=== PATIENT | female | born 1940 | race Caucasian/White ===

== ENCOUNTER 2017-04-19 09:45 | Emergency (ER) | payer MEDICARE ==
[2017-04-19] MEDS ORDERED: Losartan 50 MG Tab PO ONE (10:38)
--- NOTE | 2017-04-19 10:56 | EDM.PDOC ---
ED HPI GENERAL MEDICAL PROBLEM - General Chief Complaint: General Stated Complaint: DIZZY Time Seen by Provider: 04/19/17 10:52 Source of Information: Reports: Patient, Family History Limitations: Reports: No Limitations - History of Present Illness INITIAL COMMENTS - FREE TEXT/NARRATIVE: pt arrived with a history of feelingvery dizzy when she got up this am. She went to stand up to go to the Bathroom and she was of balance. It is difficult to obtain a history regarding vertigo. She did feel slightly nauseated. Onset: Today Duration: Hour(s):, Other (pt i feeling better at this time. She is feeling anxious. ) Location: Reports: Other ( she does not hve a headache. ) Associated Symptoms: Reports: Other ( Pt did hve slight nausea. ) Denies Pain Score (Numeric/FACES): 0 - Related Data Allergies Allergy/AdvReac Type Severity Reaction Status Date / Time No Known Allergies Allergy Verified 04/19/17 10:11 Home Meds: Home Meds Alendronate [Fosamax] 70 mg PO WEEKLY 04/19/17 [History] Atenolol 25 mg PO BEDTIME 04/19/17 [History] ClonazePAM [KlonoPIN] 0.5 mg PO TID PRN 04/19/17 [History] Levothyroxine [Synthroid] 88 mcg PO ACBREAKFAST 04/19/17 [History] Losartan [Cozaar] 50 mg PO DAILY 04/19/17 [History] Past Medical History HEENT History: Reports: Hard of Hearing, Impaired Vision, Other (See Below) Other HEENT History: [place] Cardiovascular History: Reports: High Cholesterol, Hypertension Neurological History: Reports: Vertigo Psychiatric History: Reports: Anxiety Endocrine/Metabolic History: Reports: Hypothyroidism - Infectious Disease History Infectious Disease History: Reports: Chicken Pox, Measles, Mumps - Past Surgical History Female Surgical History: Reports: Hysterectomy Musculoskeletal Surgical History: Reports: Knee Replacement, Other (See Below) Other Musculoskeletal Surgeries/Procedures:: Spinal tumor removed Oncologic Surgical History: Reports: Other (See Below) Other Oncologic Surgeries/Procedures: removal of parotid gland Social & Family History - Tobacco Use Smoking Status *Q: Never Smoker Second Hand Smoke Exposure: No - Caffeine Use Caffeine Use: Reports: Coffee, Tea - Alcohol Use Days Per Week of Alcohol Use: 0 - Recreational Drug Use Recreational Drug Use: No ED ROS GENERAL - Review of Systems Review Of Systems: See Below Constitutional: Reports: No Symptoms HEENT: Reports: Other (pt has loss of h) Respiratory: Reports: No Symptoms Cardiovascular: Reports: Other (pt had dizziness. ) Endocrine: Reports: No Symptoms GI/Abdominal: Reports: Nausea : Reports: No Symptoms Musculoskeletal: Reports: No Symptoms Skin: Reports: No Symptoms ED EXAM, GENERAL - Physical Exam Exam: See Below Free Text/Narrative:: pt was concerned about some minor dizziness or vertigo when she first got up. She is feeling better now, Exam Limited By: No Limitations General Appearance: Alert, No Apparent Distress, Anxious Ears: Normal TMs Nose: Normal Inspection Throat/Mouth: Normal Inspection Neck: Normal Inspection Respiratory/Chest: No Respiratory Distress Cardiovascular: Regular Rate, Rhythm, No Murmur GI/Abdominal: Soft, Non-Tender (Female) Exam: Deferred Rectal (Female) Exam: Deferred Back Exam: Normal Inspection Extremities: Normal Inspection Neurological: Alert, Oriented, Normal Cognition Psychiatric: Anxious Course - Vital Signs Last Recorded V/S: Last Vital Signs Temp 36.1 C 04/19/17 10:31 Pulse 63 04/19/17 10:31 Resp 16 04/19/17 10:31 BP 191/108 H 04/19/17 11:03 Pulse Ox 100 04/19/17 10:31 Orthostatic Blood Pressure [ 181/97 Standing] Orthostatic Blood Pressure [ 176/91 Sitting] Orthostatic Blood Pressure [ 163/82 Supine] - Orders/Labs/Meds Orders: Active Orders 24 hr Category Date Time Status Orthostatic Vital Signs [RC] ASDIRECTED Care 04/19/17 10:51 Active Labs: Laboratory Tests 04/19/17 04/19/17 04/19/17 Range/Units 10:42 10:55 10:55 WBC 6.1 (4.5-11.0) K/uL RBC 3.94 (3.30-5.50) M/uL Hgb 12.7 (12.0-15.0) g/dL Hct 37.9 (36.0-48.0) % MCV 96 (80-98) fL MCH 32 H (27-31) pg MCHC 34 (32-36) % Plt Count 228 (150-400) K/uL Neut % (Auto) 77 H (36-66) % Lymph % (Auto) 14 L (24-44) % [place] % (Auto) 7 H (2-6) % Eos % (Auto) 1 L (2-4) % Baso % (Auto) 1 (0-1) % Sodium 138 L (140-148) mmol/L Potassium 3.7 (3.6-5.2) mmol/L Chloride 101 (100-108) mmol/L Carbon Dioxide 29 (21-32) mmol/L Anion Gap 11.7 (5.0-14.0) mmol/L BUN 19 H (7-18) mg/dL Creatinine 0.9 (0.6-1.0) mg/dL Est Cr Clr Drug Dosing 39.85 mL/min Estimated GFR (MDRD) > 60 (>60) Glucose 108 H (74-106) mg/dL Calcium 9.0 (8.5-10.1) mg/dL Total Bilirubin 0.2 (0.2-1.0) mg/dL AST 33 (15-37) U/L ALT 38 (12-78) U/L Alkaline Phosphatase 53 (46-116) U/L Total Protein 7.5 (6.4-8.2) g/dL Albumin 3.7 (3.4-5.0) g/dL Globulin 3.8 H (2.3-3.5) g/dL Albumin/Globulin Ratio 1.0 L (1.2-2.2) TSH, Ultra Sensitive (0.358-3.740) uIU/mL Urine Color Yellow Urine Appearance Clear Urine pH 8.0 (4.5-8.0) Ur Specific [place] 1.015 (1.008-1.030) Urine Protein Negative (NEGATIVE) mg/dL Urine Glucose (UA) Normal (NEGATIVE) mg/dL Urine Ketones Negative (NEGATIVE) mg/dL Urine Occult Blood Negative (NEGATIVE) Urine Nitrite Negative (NEGATIVE) Urine Bilirubin Negative (NEGATIVE) Urine Urobilinogen Normal (NORMAL) mg/dL Ur Leukocyte Esterase Negative (NEGATIVE) Urine RBC 0-5 (0-5) Urine WBC 0-5 (0-5) Ur Epithelial Cells Few Amorphous Sediment Not seen Urine Bacteria Few Urine Mucus Not seen 04/19/17 Range/Units 10:55 WBC (4.5-11.0) K/uL RBC (3.30-5.50) M/uL Hgb (12.0-15.0) g/dL Hct (36.0-48.0) % MCV (80-98) fL MCH (27-31) pg MCHC (32-36) % Plt Count (150-400) K/uL Neut % (Auto) (36-66) % Lymph % (Auto) (24-44) % [place] % (Auto) (2-6) % Eos % (Auto) (2-4) % Baso % (Auto) (0-1) % Sodium (140-148) mmol/L Potassium (3.6-5.2) mmol/L Chloride (100-108) mmol/L Carbon Dioxide (21-32) mmol/L Anion Gap (5.0-14.0) mmol/L BUN (7-18) mg/dL Creatinine (0.6-1.0) mg/dL Est Cr Clr Drug Dosing mL/min Estimated GFR (MDRD) (>60) Glucose (74-106) mg/dL Calcium (8.5-10.1) mg/dL Total Bilirubin (0.2-1.0) mg/dL AST (15-37) U/L ALT (12-78) U/L Alkaline Phosphatase (46-116) U/L Total Protein (6.4-8.2) g/dL Albumin (3.4-5.0) g/dL Globulin (2.3-3.5) g/dL Albumin/Globulin Ratio (1.2-2.2) TSH, Ultra Sensitive 0.364 (0.358-3.740) uIU/mL Urine Color Urine Appearance Urine pH (4.5-8.0) Ur Specific [place] (1.008-1.030) Urine Protein (NEGATIVE) mg/dL Urine Glucose (UA) (NEGATIVE) mg/dL Urine Ketones (NEGATIVE) mg/dL Urine Occult Blood (NEGATIVE) Urine Nitrite (NEGATIVE) Urine Bilirubin (NEGATIVE) Urine Urobilinogen (NORMAL) mg/dL Ur Leukocyte Esterase (NEGATIVE) Urine RBC (0-5) Urine WBC (0-5) Ur Epithelial Cells Amorphous Sediment Urine Bacteria Urine Mucus Meds: Medications Discontinued Medications Generic Name Dose Route Start Last Admin Trade Name Freq PRN Reason Stop Dose Admin Lorazepam 0.5 mg 04/19/17 11:48 04/19/17 11:52 Ativan PO 04/19/17 11:49 0.5 mg ONETIME ONE Administration Losartan Potassium 50 mg 04/19/17 10:38 04/19/17 11:03 Cozaar PO 04/19/17 10:39 50 mg ONETIME ONE Administration Meclizine HCl 25 mg 04/19/17 11:13 04/19/17 11:27 Antivert PO 04/19/17 11:14 25 mg ONETIME ONE Administration - Re-Assessments/Exams Free Text/Narrative Re-Assessment/Exam: 04/19/17 12:14 pt was given her losartan and ativan and her bp is coming down. She is feeling ok at this point. Departure - Departure Time of Disposition: 12:15 Disposition: Home, Self-Care 01 Condition: Fair Clinical Impression: Hypertension, Vertigo, Anxiety - Discharge Information Forms: ED Department Discharge Care Plan Goals: cont same meds, in a couple of days start monitoring the blood pressure as she has done in the past, antivert 12.5 mg q6h as needed for recurrent dizziness. - My Orders Last 24 Hours: My Active Orders 04/19/17 10:51 Orthostatic Vital Signs [RC] ASDIRECTED - Assessment/Plan Last 24 Hours: My Active Orders 04/19/17 10:51 Orthostatic Vital Signs [RC] ASDIRECTED
[2017-04-19] MEDS ORDERED: Meclizine 25 MG Tab PO ONE (11:13)
[2017-04-19] MEDS ORDERED: LORazepam 0.5 MG Tab PO ONE (11:48)
[2017-04-19 12:16] VITALS: BP 176/84
== END 2017-04-19 12:31 | disposition home or self-care (01) ==
LOC: JP.ED 09:45
DX: I10 Essential (primary) hypertension (principal); F41.9 Anxiety disorder, unspecified; E78.00 Pure hypercholesterolemia, unspecified; E03.9 Hypothyroidism, unspecified; Z79.899 Other long term (current) drug therapy; Z90.710 Acquired absence of both cervix and uterus; Z96.659 Presence of unspecified artificial knee joint
CPT/HCPCS: 36415; 80053; 81001; 84443; 85025; 99284; A9270; 99283

== ENCOUNTER 2019-05-10 17:11 | Emergency (ER) | payer MEDICARE ==
--- NOTE | 2019-05-10 18:14 | EDM.PDOC ---
ED HPI GENERAL MEDICAL PROBLEM - General Chief Complaint: General Stated Complaint: DIZZY BLOOD PRESSURE Time Seen by Provider: 05/10/19 18:33 Source of Information: Reports: Patient History Limitations: Reports: No Limitations - History of Present Illness INITIAL COMMENTS - FREE TEXT/NARRATIVE: 78 years old female patient presented with chief complaint of dizziness. Patient stated that it felt like a mix of feeling lightheaded, spinning, unstable in her feet. She checked her blood pressure and it was elevated 190 systolic. History of chronic dizziness but worse since time improved when she rested. She is not sure how long it lasted but it was intermittent. Worse when she moves her head or try to walk. Denies any chest pain or shortness breath. Denies any headache or visual changes. Denies any focal weakness or numbness anywhere. Denies any abdominal pain diarrhea or constipation. Denies any urinary symptom. Symptom currently completely resolved and she is back to normal. Blood pressure occasionally elevated and close her to felt dizzy. - Related Data Allergies Allergy/AdvReac Type Severity Reaction Status Date / Time No Known Allergies Allergy Verified 04/19/17 10:11 Home Meds: Home Meds Alendronate [Fosamax] 70 mg PO WEEKLY 04/19/17 [History] Atenolol 25 mg PO BID 04/19/17 [History] ClonazePAM [KlonoPIN] 0.5 mg PO TID PRN 04/19/17 [History] Levothyroxine [Synthroid] 88 mcg PO ACBREAKFAST 04/19/17 [History] Losartan [Cozaar] 50 mg PO DAILY 04/19/17 [History] Past Medical History HEENT History: Reports: Hard of Hearing, Impaired Vision, Other (See Below) Other HEENT History: [place] Cardiovascular History: Reports: High Cholesterol, Hypertension Neurological History: Reports: Vertigo Psychiatric History: Reports: Anxiety Endocrine/Metabolic History: Reports: Hypothyroidism - Infectious Disease History Infectious Disease History: Reports: Chicken Pox, Measles, Mumps - Past Surgical History Female Surgical History: Reports: Hysterectomy Musculoskeletal Surgical History: Reports: Knee Replacement, Other (See Below) Other Musculoskeletal Surgeries/Procedures:: Spinal tumor removed Oncologic Surgical History: Reports: Other (See Below) Other Oncologic Surgeries/Procedures: removal of parotid gland Social & Family History - Tobacco Use Smoking Status *Q: Never Smoker - Caffeine Use Caffeine Use: Reports: Coffee ED ROS GENERAL - Review of Systems Review Of Systems: ROS reveals no pertinent complaints other than HPI. ED EXAM, GENERAL - Physical Exam Exam: See Below Exam Limited By: No Limitations General Appearance: Alert, WD/WN, No Apparent Distress Ears: Normal External Exam, Normal Canal, Hearing Grossly Normal, Normal TMs Ear Exam: Bilateral Ear: Auricle Normal, Canal Normal, TM normal Nose: Normal Inspection, Normal Mucosa, No Blood Throat/Mouth: Normal Inspection, Normal Lips, Normal Teeth, Normal Gums, Normal Oropharynx, Normal Voice, No Airway Compromise Head: Atraumatic, Normocephalic Neck: Normal Inspection, Supple, Non-Tender, Full Range of Motion Respiratory/Chest: No Respiratory Distress, Lungs Clear, Normal Breath Sounds, No Accessory Muscle Use, Chest Non-Tender Cardiovascular: Normal Peripheral Pulses, Regular Rate, Rhythm, No Edema, No Gallop, No JVD, No Murmur, No Rub GI/Abdominal: Normal Bowel Sounds, Soft, Non-Tender, No Organomegaly, No Distention, No Abnormal Bruit, No Mass Back Exam: Normal Inspection, Full Range of Motion, NT Neurological: Alert, Oriented, CN II-XII Intact, Normal Cognition, Normal Gait, Normal Reflexes, No Motor/Sensory Deficits Psychiatric: Normal Affect, Normal Mood Skin Exam: Warm, Dry, Intact, Normal Color, No Rash Course - Vital Signs Last Recorded V/S: Last Vital Signs Temp 36.3 C 05/10/19 18:37 Pulse 62 05/10/19 19:17 Resp 15 05/10/19 19:17 BP 167/82 H 05/10/19 19:17 Pulse Ox 98 05/10/19 19:17 - Orders/Labs/Meds Orders: Active Orders 24 hr Category Date Time Status Cardiac Monitoring [RC] .As Directed Care 05/10/19 18:10 Active EKG Documentation Completion [RC] ASDIRECTED Care 05/10/19 18:12 Active EKG 12 Lead [EK] Stat Ther 05/10/19 18:12 Ordered Labs: Laboratory Tests 05/10/19 05/10/19 05/10/19 Range/Units 18:25 18:25 18:25 WBC 6.1 (4.5-11.0) K/uL RBC 4.10 (3.30-5.50) M/uL Hgb 12.6 (12.0-15.0) g/dL Hct 38.8 (36.0-48.0) % MCV 95 (80-98) fL MCH 31 (27-31) pg MCHC 33 (32-36) % Plt Count 235 (150-400) K/uL Neut % (Auto) 69 H (36-66) % Lymph % (Auto) 20 L (24-44) % [place] % (Auto) 9 H (2-6) % Eos % (Auto) 1 L (2-4) % Baso % (Auto) 0 (0-1) % PT 10.7 (9.5-12.0) sec INR 0.99 (0.80-1.20) Sodium 139 L (140-148) mmol/L Potassium 3.6 (3.6-5.2) mmol/L Chloride 100 (100-108) mmol/L Carbon Dioxide 31 (21-32) mmol/L Anion Gap 11.6 (5.0-14.0) mmol/L BUN 14 (7-18) mg/dL Creatinine 0.8 (0.6-1.0) mg/dL Est Cr Clr Drug Dosing 43.03 mL/min Estimated GFR (MDRD) > 60 (>60) Glucose 96 (74-106) mg/dL Calcium 9.8 (8.5-10.1) mg/dL Troponin I < 0.017 (0.000-0.056) ng/mL NT-Pro-B Natriuret Pep 355 (5-450) pg/mL Urine Color (YELLOW) Urine Appearance (CLEAR) Urine pH (5.0-8.0) Ur Specific [place] (1.008-1.030) Urine Protein (NEGATIVE) mg/dL Urine Glucose (UA) (NEGATIVE) mg/dL Urine Ketones (NEGATIVE) mg/dL Urine Occult Blood (NEGATIVE) Urine Nitrite (NEGATIVE) Urine Bilirubin (NEGATIVE) Urine Urobilinogen (0.2-1.0) EU/dL Ur Leukocyte Esterase (NEGATIVE) Urine RBC (0-5) Urine WBC (0-5) Ur Epithelial Cells Amorphous Sediment Urine Bacteria Urine Mucus 05/10/19 Range/Units 18:36 WBC (4.5-11.0) K/uL RBC (3.30-5.50) M/uL Hgb (12.0-15.0) g/dL Hct (36.0-48.0) % MCV (80-98) fL MCH (27-31) pg MCHC (32-36) % Plt Count (150-400) K/uL Neut % (Auto) (36-66) % Lymph % (Auto) (24-44) % [place] % (Auto) (2-6) % Eos % (Auto) (2-4) % Baso % (Auto) (0-1) % PT (9.5-12.0) sec INR (0.80-1.20) Sodium (140-148) mmol/L Potassium (3.6-5.2) mmol/L Chloride (100-108) mmol/L Carbon Dioxide (21-32) mmol/L Anion Gap (5.0-14.0) mmol/L BUN (7-18) mg/dL Creatinine (0.6-1.0) mg/dL Est Cr Clr Drug Dosing mL/min Estimated GFR (MDRD) (>60) Glucose (74-106) mg/dL Calcium (8.5-10.1) mg/dL Troponin I (0.000-0.056) ng/mL NT-Pro-B Natriuret Pep (5-450) pg/mL Urine Color Yellow (YELLOW) Urine Appearance Clear (CLEAR) Urine pH 8.5 H (5.0-8.0) Ur Specific [place] 1.020 (1.008-1.030) Urine Protein Negative (NEGATIVE) mg/dL Urine Glucose (UA) Normal (NEGATIVE) mg/dL Urine Ketones Negative (NEGATIVE) mg/dL Urine Occult Blood Negative (NEGATIVE) Urine Nitrite Negative (NEGATIVE) Urine Bilirubin Negative (NEGATIVE) Urine Urobilinogen Normal (0.2-1.0) EU/dL Ur Leukocyte Esterase Negative (NEGATIVE) Urine RBC 0-5 (0-5) Urine WBC 0-5 (0-5) Ur Epithelial Cells Few Amorphous Sediment Rare Urine Bacteria Not seen Urine Mucus Not seen - Radiology Interpretation Free Text/Narrative:: Patient was seen and examined shortly after arrival. Stable on embedded software programmer. Initial blood pressure was elevated was 190 systolic, spontaneously improved down to 150/80. Dizziness completely resolved. She is feeling back to normal. EKG shows no sign of acute ischemia or arrhythmia. Lab and imaging reviewed with the patient. No significant acute abnormalities. Blood pressure spontaneously improved. She was up walking around, feeling stable in her feet, completely asymptomatic and back to normal. Cells this is could be related to it if his blood pressure hypertensive urgency. Advised to monitor her blood pressure closely and review with her primary doctor. Unlikely TIA, also possibly benign positional vertigo. Currently resolved. No sign of stroke. No sign of VT, seizure, arrhythmia. Advised to rest and stay hydrated, follow-up with PCP in a few days. Come back if symptom worsen. Patient agrees with the plan. Stable for discharge. Departure - Departure Time of Disposition: 19:31 Disposition: Home, Self-Care 01 Condition: Good Clinical Impression: Hypertensive urgency, Dizziness - Discharge Information *PRESCRIPTION DRUG MONITORING PROGRAM REVIEWED*: Not Applicable *COPY OF PRESCRIPTION DRUG MONITORING REPORT IN PATIENT SALMA: Not Applicable Referrals: PCP,None [Primary Care Provider] - Forms: ED Department Discharge Additional Instructions: Rest and stay well-hydrated Keep blood pressure diary, review your primary doctor Come back if symptom worsen Follow-up with primary doctor in 3 or 4 days - My Orders Last 24 Hours: My Active Orders 05/10/19 18:10 Cardiac Monitoring [RC] .As Directed 05/10/19 18:12 EKG Documentation Completion [RC] ASDIRECTED EKG 12 Lead [EK] Stat - Assessment/Plan Last 24 Hours: My Active Orders 05/10/19 18:10 Cardiac Monitoring [RC] .As Directed 05/10/19 18:12 EKG Documentation Completion [RC] ASDIRECTED EKG 12 Lead [EK] Stat Plan: Rest and stay well-hydrated Keep blood pressure diary, review your primary doctor Come back if symptom worsen Follow-up with primary doctor in 3 or 4 days
[2019-05-10 19:17] VITALS: BP 167/82; PULSE 62
--- NOTE | 2019-05-10 19:20 | CRLCT ---
Indication: Dizziness Technique: Nonenhanced axial CT imaging through the head. Comparison: None Findings: There is no intracranial hemorrhage, edema, or mass effect. There is mild cerebral volume loss. Mild hypoattenuation of the periventricular white matter likely relates to chronic microvascular ischemic change. The ventricles are normal in size. The basal cisterns are patent. Intracranial atherosclerotic disease is noted. The calvarium is intact. The visualized paranasal sinuses and mastoid air cells are well aerated. Impression: No acute intracranial process. Please note that all CT scans at this facility use dose modulation, iterative reconstruction, and/or weight-based dosing when appropriate to reduce radiation dose to as low as reasonably achievable. Dictated by Bee Fragoso MD @ May 10 2019 7:20PM Signed by Dr. Bee Fragoso @ May 10 2019 7:20PM
== END 2019-05-10 19:45 | disposition home or self-care (01) ==
LOC: JP.ED 17:11
DX: I16.0 Hypertensive urgency (principal); E03.9 Hypothyroidism, unspecified; F41.9 Anxiety disorder, unspecified; Z79.899 Other long term (current) drug therapy
CPT/HCPCS: 36415; 70450; 80048; 81001; 83880; 84484; 85025; 85610; 93005; 93010; 99284; 99284-25

== ENCOUNTER 2021-04-01 15:10 | Emergency (ER) | payer MEDICARE, OTHER ==
[2021-04-01 15:51] VITALS: BP 162/84; PULSE 61
[2021-04-01] MEDS ORDERED: Acetaminophen/HYDROcodone 325-5 MG Tab PO ONE (16:18)
--- NOTE | 2021-04-01 16:25 | EDM.PDOC ---
ED HPI GENERAL MEDICAL PROBLEM - General Chief Complaint: Back Pain or Injury Stated Complaint: FALL/BACK PAIN Time Seen by Provider: 04/01/21 16:05 Source of Information: Reports: Patient, Old Records, RN History Limitations: Reports: No Limitations - History of Present Illness INITIAL COMMENTS - FREE TEXT/NARRATIVE: 80 yo female here with R flank pain after falling into a dresser on her way to the bathroom in the middle of the night. Has no pain at rest, but has increased pain with especially getting up off her toilet. Is taking acetaminophen with partial relief. Onset: Sudden Onset Date: 03/31/21 Duration: Day(s): (1.5), Intermittent Location: Reports: Back Quality: Reports: Sharp, Stabbing Severity: Severe Improves with: Reports: Rest Worsens with: Reports: Movement Context: Reports: Trauma Associated Symptoms: Reports: No Other Symptoms Treatments [facility] UNDERWRITER: Reports: Acetaminophen - Related Data Allergies Allergy/AdvReac Type Severity Reaction Status Date / Time No Known Allergies Allergy Verified 04/01/21 15:48 Home Meds: Home Meds ClonazePAM [KlonoPIN] 0.5 mg PO TID PRN 04/19/17 [History] Levothyroxine [Synthroid] 50 mcg PO ACBREAKFAST 04/19/17 [History] Losartan [Cozaar] 100 mg PO DAILY 04/19/17 [History] atenoloL [Atenolol] 25 mg PO BID 04/19/17 [History] Acetaminophen/HYDROcodone [[place] 325-5 MG] 1 tab PO Q4H PRN #20 tab 04/01/21 [Rx] amLODIPine [Norvasc] 2.5 mg PO BEDTIME 04/01/21 [History] Past Medical History HEENT History: Reports: Hard of Hearing, Impaired Vision, Other (See Below) Other HEENT History: [place] Cardiovascular History: Reports: High Cholesterol, Hypertension Genitourinary History: Reports: None Neurological History: Reports: Vertigo Psychiatric History: Reports: Anxiety Endocrine/Metabolic History: Reports: Hypothyroidism - Infectious Disease History Infectious Disease History: Reports: Chicken Pox, Measles, Mumps - Past Surgical History Female Surgical History: Reports: Hysterectomy Musculoskeletal Surgical History: Reports: Knee Replacement, Other (See Below) Other Musculoskeletal Surgeries/Procedures:: Spinal tumor removed Oncologic Surgical History: Reports: Other (See Below) Other Oncologic Surgeries/Procedures: removal of parotid gland Dermatological Surgical History: Reports: None Social & Family History - Caffeine Use Caffeine Use: Reports: Coffee ED ROS GENERAL - Review of Systems Review Of Systems: See Below Constitutional: Reports: No Symptoms HEENT: Reports: No Symptoms Respiratory: Reports: No Symptoms Cardiovascular: Reports: No Symptoms GI/Abdominal: Reports: No Symptoms Musculoskeletal: Reports: Back Pain Skin: Reports: No Symptoms Neurological: Reports: No Symptoms ED EXAM, UPPER BACK/NECK PAIN - Physical Exam Exam: See Below Exam Limited By: No Limitations General Appearance: Alert, WD/WN, No Apparent Distress, Thin Eye Exam: Bilateral Eye: Normal Inspection Ears Exam: Normal External Exam, Normal Canal, Hearing Loss Nose Exam: Normal Inspection, No Blood Throat/Mouth Exam: Normal Inspection, Normal Lips, Normal Voice, No Airway Compromise Head Exam: Atraumatic, Normocephalic Cardiovascular/Respiratory: Regular Rate, Rhythm, Normal Breath Sounds, No Respiratory Distress. No: Rales, Rhonchi Back Exam: Normal Inspection, Other (Rib tenderness over the R post/lateral 12th rib). No: CVA Tenderness (R), CVA Tenderness (L) Extremities: Normal Inspection Neurologic: library clerk talking books II-XII nml As Tested, No Motor/Sensory Deficits, Normal Mood/Affect, Oriented x 3 Psychiatric: Normal Affect, Normal Mood Skin Exam: Normal Color, Warm/Dry Course - Vital Signs Last Recorded V/S: Last Vital Signs Temp 36.6 C 04/01/21 15:53 Pulse 61 04/01/21 15:53 Resp 17 04/01/21 15:53 BP 162/84 H 04/01/21 15:53 Pulse Ox 99 04/01/21 15:53 - Orders/Labs/Meds Orders: Active Orders 24 hr Category Date Time Status Ribs 3V wo Chest Rt [CR] Stat Exams 04/01/21 16:18 Taken Meds: Medications Discontinued Medications Generic Name Dose Route Start Last Admin Trade Name Freq PRN Reason Stop Dose Admin Hydrocodone Bitart/Acetaminophen 1 tab 04/01/21 16:18 04/01/21 16:24 Acetaminophen/Hydrocodone 325-5 Mg Tab PO 04/01/21 16:19 1 tab ONETIME ONE Administration - Radiology Interpretation Free Text/Narrative:: Rib X-rays-neg Departure - Departure Time of Disposition: 16:55 Disposition: Home, Self-Care 01 Condition: Fair Clinical Impression: Rib pain on right side - Discharge Information *PRESCRIPTION DRUG MONITORING PROGRAM REVIEWED*: No *COPY OF PRESCRIPTION DRUG MONITORING REPORT IN PATIENT [place]: No Prescriptions: Acetaminophen/HYDROcodone [[place] 325-5 MG] 1 tab PO Q4H PRN #20 tab PRN Reason: Pain Referrals: PCP,None [Primary Care Provider] - Forms: ED Department Discharge Additional Instructions: Use acetaminophen 650 mg every 4 hrs as needed for pain relief during the day. At night take [place] 1 every 4 hrs as needed for increased pain relief. See your doctor for recheck before this next weekend. Consider getting a lift for your toilet seat and/or grab bars in your bathroom to help you get off the toilet Sepsis Event Note (ED) - Evaluation Sepsis Screening Result: No Definite Risk - Focused Exam Vital Signs: Vital Signs Temp Pulse Resp BP Pulse Ox 04/01/21 15:53 36.6 C 61 17 162/84 H 99 04/01/21 15:49 36.6 C 61 17 162/84 H 99 - My Orders Last 24 Hours: My Active Orders 04/01/21 16:18 Ribs 3V wo Chest Rt [CR] Stat - Assessment/Plan Last 24 Hours: My Active Orders 04/01/21 16:18 Ribs 3V wo Chest Rt [CR] Stat
--- NOTE | 2021-04-02 08:47 | CR ---
Ribs 3V wo Chest Rt CLINICAL HISTORY: Fall FINDINGS: There is no acute fracture within the ribs. No destructive changes are seen. There is no focal pleural thickening or obvious effusion. Patient has an S shaped scoliosis with lower thoracic convexity to the left IMPRESSION: Negative right ribs. Scoliosis
== END 2021-04-01 17:03 | disposition home or self-care (01) ==
LOC: JP.ED 15:10
DX: R07.81 Pleurodynia (principal); I10 Essential (primary) hypertension; E03.9 Hypothyroidism, unspecified; Z79.899 Other long term (current) drug therapy
CPT/HCPCS: 71101; 99283; A9270

== ENCOUNTER 2023-03-29 10:46 | Emergency (ER) | payer MEDICARE ==
[2023-03-29 12:14] LABS: BASOPHILS PERCENT AUTO 0.4 % (0.1-1.3); EOSINOPHILS ABSOLUTE AUTO 0.04 K/uL (0.00-0.40); EOSINOPHILS PERCENT AUTO 0.9 % (0.0-5.4); HEMATOCRIT 33.9 % (34.3-46.0); HEMOGLOBIN 11.1 g/dL (11.2-15.5); IMMATURE GRAN PERCENT AUTO 0.2 % (0.0-0.7); LYMPHOCYTES ABSOLUTE AUTO 0.95 K/uL (0.8-3.3); LYMPHOCYTES PERCENT AUTO 21.2 % (11.4-47.7); MEAN CORPUSCULAR HEMOGLOBIN 31.2 pg (31.6-35.5); MEAN CORPUSCULAR HGB CONC 32.7 g/dL (31.6-35.5); MEAN CORPUSCULAR VOLUME 95.2 fL (81.4-99.0); MONOCYTES ABSOLUTE AUTO 0.38 K/uL (0.20-0.90); MONOCYTES PERCENT AUTO 8.5 % (3.3-12.6); NEUTROPHILS ABSOLUTE AUTO 3.08 K/uL (1.0-7.6); NEUTROPHILS PERCENT AUTO 68.8 % (40.0-78.1); PLATELET COUNT,PLT 235 K/uL (130-375); RED BLOOD CELL COUNT 3.56 M/uL (3.77-5.24); WHITE BLOOD CELL COUNT,WBC 4.5 K/uL (3.2-11.0)
[2023-03-29 12:15] LABS: BASOPHILS ABSOLUTE AUTO 0.02 K/uL (0.00-0.10); IMMATURE GRAN ABSOLUTE AUTO 0.01 K/uL (0.00-0.23)
[2023-03-29 12:22] VITALS: BP 157/86; PULSE 69
[2023-03-29 12:33] LABS: CALCIUM 9.5 mg/dL (8.5-10.1); CREATININE 0.9 mg/dL (0.6-1.0); EST CRCL DRUG DOSING (CG) 31.37 mL/min; POTASSIUM,K 3.6 mmol/L (3.6-5.2)
[2023-03-29 12:34] LABS: ANION GAP 11.6 mmol/L (5.0-14.0)
[2023-03-29 12:50] LABS: APPEARANCE,URINE CLEAR (CLEAR); BILIRUBIN,URINE NEGATIVE (NEGATIVE); COLOR,URINE YELLOW (YELLOW); GLUCOSE,URINE NEGATIVE (NEGATIVE); KETONES,URINE NEGATIVE (NEGATIVE); LEUKOCYTE ESTERASE,URINE TRACE (NEGATIVE); NITRITE,URINE NEGATIVE (NEGATIVE); OCCULT BLOOD,URINE NEGATIVE (NEGATIVE); PH,URINE 8.5 (5.0-8.0); PROTEIN,URINE NEGATIVE (NEGATIVE); UROBILINOGEN,URINE 0.2 EU/dL (0.2-1.0)
[2023-03-29 12:56] LABS: AMORPHOUS SEDIMENT,URINE NOT SEEN; BACTERIA,URINE NOT SEEN; EPITHELIAL CELLS,URINE FEW; MUCUS,URINE NOT SEEN; RBC,URINE NOT SEEN (0-5); WBC,URINE 0-5 (0-5)
== END 2023-03-29 13:41 | disposition home or self-care (01) ==
LOC: JP.ED 10:46
DX: F41.9 Anxiety disorder, unspecified (principal); R11.0 Nausea; H61.22 Impacted cerumen, left ear; I10 Essential (primary) hypertension; Z79.899 Other long term (current) drug therapy
CPT/HCPCS: 36415; 80048; 81001; 85025; 99284

== ENCOUNTER 2025-04-14 22:16 | Inpatient (IN) | payer MEDICARE ==
[2025-04-14] MEDS: Ondansetron 4 MG/2 ML SDV IVPUSH ONE (23:54)
[2025-04-14] MEDS: Sodium Chloride 0.9% 10 ML Syringe FLUSH PRN (23:54)
[2025-04-15 05:34] LABS: BASOPHILS PERCENT AUTO 0.1 % (0.1-1.3); EOSINOPHILS ABSOLUTE AUTO 0.04 K/uL (0.00-0.40); EOSINOPHILS PERCENT AUTO 0.5 % (0.0-5.4); IMMATURE GRAN ABSOLUTE AUTO 0.03 K/uL (0.00-0.23); IMMATURE GRAN PERCENT AUTO 0.3 % (0.0-0.7); LYMPHOCYTES ABSOLUTE AUTO 0.57 K/uL (0.8-3.3); LYMPHOCYTES PERCENT AUTO 6.5 % (11.4-47.7); MONOCYTES ABSOLUTE AUTO 0.72 K/uL (0.20-0.90); MONOCYTES PERCENT AUTO 8.2 % (3.3-12.6); NEUTROPHILS ABSOLUTE AUTO 7.45 K/uL (1.0-7.6); NEUTROPHILS PERCENT AUTO 84.4 % (40.0-78.1); PLATELET COUNT,PLT 181 K/uL (130-375); RED BLOOD CELL COUNT 3.82 M/uL (3.77-5.24); WHITE BLOOD CELL COUNT,WBC 8.8 K/uL (3.2-11.0)
[2025-04-15 05:48] LABS: BASOPHILS ABSOLUTE AUTO 0.01 K/uL (0.00-0.10)
[2025-04-15 05:50] LABS: INR 1.0
[2025-04-15 05:52] LABS: A/G RATIO 1.1 (1.2-2.2); ALANINE AMINOTRANSFERASE,ALT 93 U/L (12-78); ASPARTATE AMNIOTRANSFERASE,AST 52 U/L (15-37); BILIRUBIN TOTAL 0.6 mg/dL (0.2-1.0); BLOOD UREA NITROGEN,BUN 28 mg/dL (7-18); CARBON DIOXIDE,CO2 29 mmol/L (21-32); CHLORIDE,CL 103 mmol/L (100-108); CREATININE 0.8 mg/dL (0.6-1.0); EST CRCL DRUG DOSING (CG) 39.92 mL/min; ESTIMATED GFR 72 mL/min (>60); GLUCOSE RANDOM 123 mg/dL (74-106); POTASSIUM,K 3.7 mmol/L (3.6-5.2); PROTEIN TOTAL,TP 6.7 g/dL (6.4-8.2); SODIUM,NA 137 mmol/L (140-148)
[2025-04-15 06:14] LABS: APPEARANCE,URINE CLEAR (CLEAR); GLUCOSE,URINE NEGATIVE (NEGATIVE); OCCULT BLOOD,URINE TRACE-INTACT (NEGATIVE)
[2025-04-15 06:21] LABS: EPITHELIAL CELLS,URINE RARE
[2025-04-15] MEDS ORDERED: fentaNYL 100 MCG/2 ML SDV ONE (10:12)
[2025-04-15] MEDS ORDERED: Propofol 200 MG/20 ML SDV ONE (10:12)
[2025-04-15] MEDS ORDERED: Midazolam 1 MG/ML 2 ML SDV ONE (10:12)
[2025-04-15] MEDS ORDERED: Lactated Ringers 1,000 ML ONE (10:59)
[2025-04-15] MEDS ORDERED: Naloxone 0.4 MG/ML SDV IVPUSH PRN (13:16)
[2025-04-15] MEDS ORDERED: Sodium Chloride 0.9% 10 ML Syringe FLUSH PRN (13:16)
[2025-04-15] MEDS ORDERED: Albuterol 0.083% 2.5 MG/3 ML Neb Soln NEB PRN (13:16)
[2025-04-15] MEDS: Ondansetron 4 MG/2 ML SDV IV PRN (17:11)
[2025-04-16 05:27] LABS: PLATELET COUNT,PLT 145.0 K/uL (130-375); RED BLOOD CELL COUNT 3.1 M/uL (3.77-5.24); WHITE BLOOD CELL COUNT,WBC 4.7 K/uL (3.2-11.0)
[2025-04-16 05:41] LABS: BLOOD UREA NITROGEN,BUN 15.0 mg/dL (7-18); CARBON DIOXIDE,CO2 27.0 mmol/L (21-32); CHLORIDE,CL 104.0 mmol/L (100-108); CREATININE 0.8 mg/dL (0.6-1.0); EST CRCL DRUG DOSING (CG) 39.21 mL/min; ESTIMATED GFR 72.0 mL/min (>60); GLUCOSE RANDOM 114.0 mg/dL (74-106); POTASSIUM,K 3.2 mmol/L (3.6-5.2); SODIUM,NA 140.0 mmol/L (140-148)
[2025-04-16] MEDS: Aspirin 325 MG Tab.EC PO SCH (09:17)
[2025-04-16] MEDS: Potassium Chloride 20 MEQ Tab.ER PO ONE ×2 (09:28→18:11)
[2025-04-18 06:07] LABS: PLATELET COUNT,PLT 174.0 K/uL (130-375); RED BLOOD CELL COUNT 3.2 M/uL (3.77-5.24); WHITE BLOOD CELL COUNT,WBC 6.7 K/uL (3.2-11.0)
[2025-04-18 06:27] LABS: BLOOD UREA NITROGEN,BUN 19.0 mg/dL (7-18); CARBON DIOXIDE,CO2 28.0 mmol/L (21-32); CHLORIDE,CL 101.0 mmol/L (100-108); CREATININE 0.8 mg/dL (0.6-1.0); EST CRCL DRUG DOSING (CG) 39.92 mL/min; ESTIMATED GFR 72.0 mL/min (>60); GLUCOSE RANDOM 102.0 mg/dL (74-106); POTASSIUM,K 3.4 mmol/L (3.6-5.2); SODIUM,NA 137.0 mmol/L (140-148)
[2025-04-18] MEDS: Potassium Chloride 20 MEQ Tab.ER PO ONE (08:22)
[2025-04-18] MEDS: Sennosides/Docusate Sodium 50-8.6 MG Tab PO SCH (21:16)
[2025-04-19 11:47] VITALS: BP 121/73; PULSE 83
== END 2025-04-19 12:50 | DRG 522 ==
LOC: JP.ED 22:16 → JP.SDS 04-15 09:32 → JP.MS 04-15 09:33
PROVIDERS: ADMIT Hospitalist; ATTEND Internal Medicine
PROC: 0SRS0JA Replacement of Left Hip Joint, Femoral Surface with Synthetic Substitute, Uncemented, Open Approach (ICD-10-PCS; principal; 2025-04-14)
DX: S72.002A Fracture of unspecified part of neck of left femur, initial encounter for closed fracture (principal); G30.9 Alzheimer's disease, unspecified; F02.80 Dementia in other diseases classified elsewhere, unspecified severity, without behavioral disturbance, psychotic disturbance, mood disturbance, and anxiety; I10 Essential (primary) hypertension; H91.90 Unspecified hearing loss, unspecified ear; H54.7 Unspecified visual loss; W01.0XXA Fall on same level from slipping, tripping and stumbling without subsequent striking against object, initial encounter; E78.00 Pure hypercholesterolemia, unspecified; F41.9 Anxiety disorder, unspecified; E03.9 Hypothyroidism, unspecified; Z90.710 Acquired absence of both cervix and uterus; Z79.899 Other long term (current) drug therapy; Z96.649 Presence of unspecified artificial hip joint; Z96.659 Presence of unspecified artificial knee joint; Z98.890 Other specified postprocedural states
CPT/HCPCS: 01230-QZ; 36415; 51702; 72170; 72170-26; 73502-26-LT; 73502-LT; 73552-26-LT; 73552-LT; 80048; 80053; 81001; 83735; 84132; 85025; 85027; 85610; 86850; 86900; 86901; 93005; 93010; 96374; 96375; 97110-GP; 97116-GP; 97161-GP; 97165-GO; 97530-GP; 97535-GO; 99223; 99232; 99239; 99284; 99284-25; A9270-GY; C1713; C1776; J0690; J1171; J2250; J2270; J2405; J2704; J3010; J7030; J7120